=== PATIENT | female | born 1985 | race Caucasian/White ===

== ENCOUNTER → 2017-03-24 | Outpatient (CLI) | payer OTHER ==
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
== END | disposition home or self-care (01) ==
LOC: RADCTMAIN 19:40
PROVIDERS: ATTEND Family Medicine
DX: R10.9 Unspecified abdominal pain (principal); Z90.49 Acquired absence of other specified parts of digestive tract
CPT/HCPCS: 74176

== ENCOUNTER → 2017-03-25 | Outpatient (CLI) | payer SELFPAY ==
--- NOTE | 2017-03-25 13:57 | FL ---
EXAMINATION TYPE: FL UGI DATE OF EXAM: 03/25/2017 COMPARISON: CT abdomen pelvis dated 03/24/2017 HISTORY: Abdominal pain and nausea TECHNIQUE: A double contrast UGI study is performed. Fluoroscopy time of 1 minute and 9 seconds. FINDINGS: [employer] image of the abdomen shows no gross abnormality although retained contrast is seen w ithin the colon, which limits evaluation of the duodenal sweep. The esophagus shows normal motility and emptying into the stomach. No evidence of hiatal hernia or s tricture noted. The stomach shows normal distensibility and peristalsis. Mildly thickened gastric rugae typically rel ate to mild gastritis. No focal ulceration. No evidence of any mass or ulcer disease. Mild gastroesop hageal reflux was seen to the level of the distal thoracic esophagus while utilizing the Valsalva man euver and a gravity independent position. The duodenal bulb and second portion of the duodenum are unremarkable, however the third and fourth p ortion of the duodenum are not well visualized due to contrast within the overlying large bowel from the recent CT. IMPRESSION: 1. Mildly thickened gastric rugae most commonly relating to mild gastritis. No focal ulceration. 2. Minimal gastroesophageal reflux to the level of distal thoracic esophagus. 3. Obscuration of the third and fourth portions of the duodenum by contrast-filled large bowel from t he recent CT.
== END | disposition home or self-care (01) ==
LOC: RADFLWHC 09:20
PROVIDERS: ATTEND Family Medicine
DX: K21.9 Gastro-esophageal reflux disease without esophagitis (principal); K29.60 Other gastritis without bleeding
CPT/HCPCS: 74240

== ENCOUNTER → 2017-11-15 | Outpatient (CLI) | payer OTHER ==
--- NOTE | 2017-11-15 13:07 | XR ---
EXAMINATION TYPE: XR chest 2V DATE OF EXAM: 11/15/2017 COMPARISON: NONE INDICATION: Cough x2 months TECHNIQUE: Frontal and lateral views of the chest are obtained. FINDINGS: The heart size is normal. The pulmonary vasculature is normal. The lungs are clear. IMPRESSION: 1. No acute pulmonary process.
== END | disposition home or self-care (01) ==
LOC: RADXRMAIN 11:37
PROVIDERS: ATTEND Family Medicine
DX: R05 Cough (principal)
CPT/HCPCS: 71046

== ENCOUNTER → 2024-03-09 | Outpatient (CLI) | payer OTHER ==
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
== END | disposition home or self-care (01) ==
LOC: RADUSWWP 16:27
PROVIDERS: ATTEND Family Medicine
DX: R22.42 Localized swelling, mass and lump, left lower limb (principal)